=== PATIENT | female | born 1995 | race Two or more races ===

== ENCOUNTER 2016-11-23 02:00 | Emergency (ER) | payer BC ==
[~2016-11-23] VITALS: Ht 154.9 cm; Wt 68.9 kg
[2016-11-23] MEDS ORDERED: Lidocaine 2% Visc 15ml soln ORAL ONE (02:45)
[2016-11-23] MEDS ORDERED: Norco 5mg/325mg tab ORAL ONE (02:45)
--- NOTE | 2016-11-23 02:51 | Emergency Room Report ---
History of Present Illness General Chief Complaint: Sore Throat Source: Patient Present Illness HPI The patient presents with severe sore throat. This is been going on for a couple days. She's also had problems with shortness of breath wheezing and feeling like her throat was closing. She used a steroid inhaler which has helped somewhat. Also she was receiving albuterol help with that also. She denies any fevers. She does feel generalized malaise. Denies any nausea vomiting diarrhea dysuria. She's doesn't know of any infectious exposures however she works in contact with other people. Pain is throat is 8/10, sharp and radiating anteriorly in neck. She states she is not - menses now. The feeling is making her anxious. She has been up since 6 am working, but had to go home because of this problem. 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 Last Menstrual Period: 11/19/16 Now: No Reviewed Nursing Documentation: PMH: Agreed, PSxH: Agreed Nursing Documentation-PMH Past Medical History: No History, Except For Hx Asthma: Yes - Broncho-spams Review of Systems All Other Systems: negative except mentioned in HPI Physical Exam Vital Signs Date Time Temp Pulse Resp B/P Pulse Ox O2 Delivery O2 Flow Rate FiO2 11/23/16 02:08 98.1 78 16 105/69 99 Room Air Sp02 EP Interpretation: reviewed, normal General Appearance: well appearing, no apparent distress, GCS 15 Head: normocephalic, atraumatic Eyes: bilateral eye PERRL, bilateral eye normal inspection ENT: no angioedema, normal voice, uvula midline, moist mucus membranes, pharyngeal erythema, tonsillar exudate, other - NO PTAS Neck: full range of motion, supple Respiratory: chest non-tender, lungs clear, normal breath sounds, no respiratory distress, speaking full sentences Cardiovascular #1: regular rate, rhythm Cardiovascular #2: 2+ radial (R) Gastrointestinal: normal inspection Musculoskeletal: digits/nails normal, gait/station normal, normal range of motion, no calf tenderness Neurologic: alert, normal gait, speech normal, grossly normal Psychiatric: anxious Skin: no rash - scratches R hand Lymphatic: adenopathy - anterior (no posterior chain nodes) Medical Decision Making Diagnostic Impression: Primary Impression: Pharyngitis Qualified Codes: J02.9 - Acute pharyngitis, unspecified ER Course Patient presents with throat pain and feeling it is closing. Ddx: strep, viral , [employer] (exam against), anxiety, Woods (exam against). Treatment will be with decadron, amox, norco and viscous lidocaine. No wheezing at this time. Improved with treatment. Patient stable for outpatient observation and treatment. Last Vital Signs Date Time Temp Pulse Resp B/P Pulse Ox O2 Delivery O2 Flow Rate FiO2 11/23/16 03:27 98.1 16 105/69 99 Room Air 11/23/16 03:26 63 Status: improved Disposition: HOME, SELF-CARE Condition: Improved Scripts Lidocaine HCl (Lidocaine HCl Viscous) 100 Ml Solution 10 ML PO Q6HR Y for throat pain, #100 ML Prov: Ramon Guadalupe M.D. 11/23/16 Tramadol Hcl* (ULTRAM*) 50 Mg Tablet 50 MG ORAL Q6H Y for For Pain, #12 TAB 0 Refills Prov: Raomn Guadalupe M.D. 11/23/16 Amoxicillin* (AMOXIL*) 500 Mg Capsule 500 MG ORAL THREE TIMES A DAY, #21 CAP Prov: Ramon Guadalupe M.D. 11/23/16 Referrals: NOT CHOSEN YOUNG/,REFERRING (PCP) Ramon Guadalupe M.D. Nov 23, 2016 02:51
[2016-11-23] MEDS ORDERED: LIDOCAINE VISCO20 ML PO (03:13)
[2016-11-23] MEDS ORDERED: AMOXICILLIN500 MG ORAL (03:13)
[2016-11-23] MEDS ORDERED: TRAMADOL HCL50 MG ORAL (03:13)
[2016-11-23 03:26] VITALS: BP 117/74
[2016-11-23 03:27] VITALS: BP 105/69
== END 2016-11-23 03:28 | disposition home or self-care (01) ==
LOC: EMR 02:36
DX: J02.9 Acute pharyngitis, unspecified (principal); J45.909 Unspecified asthma, uncomplicated
CPT/HCPCS: 99284; J8540

== ENCOUNTER 2017-02-16 22:45 | Emergency (ER) | payer BC ==
[~2017-02-16] VITALS: Ht 154.9 cm; Wt 68.0 kg
[~2017-02-16 22:45] MED LIST: AMOXICILLIN500 MG ORAL; LIDOCAINE VISCO20 ML PO; TRAMADOL HCL50 MG ORAL
[2017-02-16] MEDS ORDERED: XANAX0.5 MG ORAL (23:02)
[2017-02-16] MEDS ORDERED: ADDERAL20 MG ORAL (23:02)
[2017-02-16 23:13] VITALS: BP 128/77
[2017-02-16] MEDS ORDERED: Oxycodone/Acetaminophen 5-325 ORAL ONE (23:15)
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
[2017-02-17] MEDS ORDERED: NORCO 5-325 TA1 EACH ORAL (00:28)
[2017-02-17] MEDS ORDERED: IBUPROFEN600 MG ORAL (00:28)
[2017-02-17 00:38] VITALS: BP 117/70
--- NOTE | 2017-02-17 09:23 | Diagnostic Imaging Report ---
Indication: Right hand pain Technique: XRAY HAND MIN 3V RIGHT Comparison: None Findings: There is apparent deformity involving the base of the fifth metacarpal. Bone mineralization is normal. Joint spaces are within normal limits. Impression: Apparent deformity involving the base of the fifth metacarpal suggestive of acuity indeterminate fracture. Followup/further evaluation with CT recommended as indicated.
== END 2017-02-17 00:38 | disposition home or self-care (01) ==
LOC: EMR 23:30
DX: S62.91XA Unspecified fracture of right hand, initial encounter for closed fracture (principal); W22.8XXA Striking against or struck by other objects, initial encounter; Y93.9 Activity, unspecified; Y92.9 Unspecified place or not applicable; Z91.018 Allergy to other foods; Z91.048 Other nonmedicinal substance allergy status
CPT/HCPCS: 99283

== ENCOUNTER 2017-10-02 19:33 | Emergency (ER) | payer BC ==
[~2017-10-02] VITALS: Ht 154.9 cm; Wt 64.0 kg
[~2017-10-02 19:33] MED LIST changes: +ADDERAL20 MG ORAL; +IBUPROFEN600 MG ORAL; +NORCO 5-325 TA1 EACH ORAL; +XANAX0.5 MG ORAL
[2017-10-02 20:12] VITALS: BP 130/77
--- NOTE | 2017-10-02 20:20 | Emergency Room Report ---
History of Present Illness General Chief Complaint: Sore Throat Source: Patient Present Illness HPI 22-year-old female presents to the emergency department complaining of 8/10 in severity sore throat with oral ulcers since Saturday. She states that week ago she was treated for strep throat for which she later had rapid strep test that came back as negative. Patient denies fevers or chills she reports initially having some fatigue and flulike symptoms however has only had continued oral ulcers and sore throat remaining. She denies ill contacts or recent travel. Reports pain exacerbation with swallowing. Denies neck pain or stiffness. Denies rash. Denies history of immunocompromise. Denies CP, Palpitations, LOC , AMS, dizziness, Changes in Vision, Sensation, paresthesias, or a sudden severe headache. Allergies: Coded Allergies: COPPER (Verified Allergy, Unknown, 02/16/17) Uncoded Allergies: JOANNE (Allergy, Unknown, 02/16/17) STRAWBERRIES (Allergy, Unknown, 02/16/17) Patient History Past Medical History: see triage record Past Surgical History: none Pertinent Family History: none Last Menstrual Period: 09/26/17 Now: No : 2 Para: 1 Reviewed Nursing Documentation: PMH: Agreed, PSxH: Agreed Nursing Documentation-PMH Hx Asthma: Yes Review of Systems All Other Systems: negative except mentioned in HPI Physical Exam Vital Signs Date Time Temp Pulse Resp B/P (MAP) Pulse Ox O2 Delivery O2 Flow Rate FiO2 10/02/17 19:59 98.2 111 18 130/77 98 98.2 Sp02 EP Interpretation: reviewed, normal General Appearance: no apparent distress, alert, GCS 15, non-toxic Head: normocephalic, atraumatic ENT: hearing grossly normal, normal voice, other - mulitple discrete oral ulcers on posterior pharynx, roof of the mouth, on the tongue, and on the lower gums, no tonsillar swelling, or exudates. Neck: full range of motion, no meningismus, no bony tend Respiratory: chest non-tender, lungs clear, normal breath sounds, speaking full sentences Cardiovascular #1: regular rate, rhythm, no edema Musculoskeletal: back normal, gait/station normal, normal range of motion, non- tender Neurologic: alert, oriented x3, responsive, motor strength/tone normal, sensory intact, speech normal, grossly normal Psychiatric: judgement/insight normal Skin: normal color, no rash, warm/dry, well hydrated Lymphatic: no adenopathy Medical Decision Making PA Attestation Dr. charles is my supervising Physician whom patient management has been discussed with. Diagnostic Impression: Primary Impression: Esophagitis Additional Impressions: Recurrent oral ulcers Mouth ulcers ER Course 22-year-old female presents to the emergency department complaining of 8/10 in severity sore throat with oral ulcers since Saturday. She states that week ago she was treated for strep throat for which she later had rapid strep test that came back as negative. Patient denies fevers or chills she reports initially having some fatigue and flulike symptoms however has only had continued oral ulcers and sore throat remaining. She denies ill contacts or recent travel. Reports pain exacerbation with swallowing. Denies neck pain or stiffness. Denies rash. Denies history of immunocompromise. Denies CP, Palpitations, LOC , AMS, dizziness, Changes in Vision, Sensation, paresthesias, or a sudden severe headache. Ddx considered but are not limited to: stomatitis, up from his ulcers, oral thrush, HFM, koplik spots, HSV, dental abscess, ELECT[employer]IC[employer] UNDERGROUND, tonsiliths. Vital signs: are WNL, pt. is afebrile H&PE are most consistent with viral mucositis/ ulcers with esophagitis. no evidence of bacterial infection or abscess at this time. no exudates. ORDERS: none required at this time, the diagnosis is clinical ED INTERVENTIONS: -Oral viscous lidocaine -Naproxen Sodium PO DISCHARGE: At this time pt. is stable for d/c to home. Will provide printed patient care instructions, and any necessary prescriptions. Care plan and follow up instructions have been discussed with the patient prior to discharge. Last Vital Signs Date Time Temp Pulse Resp B/P (MAP) Pulse Ox O2 Delivery O2 Flow Rate FiO2 10/02/17 19:59 98.2 111 18 130/77 98 98.2 Disposition: HOME, SELF-CARE Condition: Stable Scripts Naproxen* (NAPROXEN*) 500 Mg Tablet 500 MG ORAL TWICE A DAY, #20 TAB Prov: Ciara Melendez P.Tristen 10/02/17 Lidocaine HCl 2% Viscous (Lidocaine HCl 2% Viscous) 100 Ml Solution 15 ML ORAL QID, #120 ML Prov: Ciara Melendez.Tristen 10/02/17 Acyclovir* (ACYCLOVIR*) 400 Mg Tablet 400 MG ORAL TID for 7 Days, #21 TAB Prov: Ciara Melendez 10/02/17 Patient Instructions: Esophagitis, Oral Ulcers Additional Instructions: Take medications as directed. Follow up with a Primary Care Provider in 3-5 days, even if your symptoms have resolved. IF Symptoms have not resolved may require ENT Follow up. --Please review list of primary care clinics, if you do not already have a primary care provider Return sooner to ED if new symptoms occur, or current symptoms become worse. - Please note that this Emergency Department Report was dictated using edjingtool distributor technology software, occasionally this can lead to erroneous entry secondary to interpretation by the dictation equipment. Ciara Melendez Oct 02, 2017 20:20
[2017-10-02] MEDS ORDERED: Naproxen 500mg tab ORAL ONE (20:30)
[2017-10-02] MEDS ORDERED: Lidocaine 2% Visc 15ml soln ORAL ONE (20:30)
[2017-10-02] MEDS ORDERED: ACYCLOVIR400 MG ORAL (20:36)
[2017-10-02] MEDS ORDERED: NAPROXEN500 M2 ORAL (20:36)
[2017-10-02] MEDS ORDERED: LIDOCAINE VISC100 ML ORAL (20:36)
[2017-10-02 21:04] VITALS: BP 130/77
== END 2017-10-02 21:05 | disposition home or self-care (01) ==
LOC: EMR 20:49
DX: K20.9 Esophagitis, unspecified (principal); K12.0 Recurrent oral aphthae; J45.909 Unspecified asthma, uncomplicated; Z88.8 Allergy status to other drugs, medicaments and biological substances; Z91.018 Allergy to other foods
CPT/HCPCS: 99283